=== PATIENT | female | born 1975 | race Two or more races ===

== ENCOUNTER 2023-01-04 20:31 | Emergency (ER) | payer OTHER ==
[2023-01-04 20:42] VITALS: BP 98/60; PULSE 94; RESP 20; TEMP 98.4; BMI 24.7
== END 2023-01-04 22:11 | disposition home or self-care (01) ==
LOC: JERFT 20:31
DX: O9A.211 Injury, poisoning and certain other consequences of external causes complicating pregnancy, first trimester (principal); M25.561 Pain in right knee; V49.50XA Passenger injured in collision with unspecified motor vehicles in traffic accident, initial encounter; Z3A.01 Less than 8 weeks gestation of pregnancy
CPT/HCPCS: 99282-25